=== PATIENT | female | born 1980 | race Caucasian/White ===

== ENCOUNTER 2016-11-05 14:47 | Emergency (ER) | payer OTHER | END 2016-11-05 14:59 | disposition left against medical advice (07) | LOC: CED 14:47 | DX: R21 Rash and other nonspecific skin eruption (principal) ==

== ENCOUNTER 2018-03-06 13:00 | Emergency (ER) | payer MEDICAID ==
[2018-03-06 13:18] VITALS: BP 136/87
--- NOTE | 2018-03-06 13:31 | EDPHY ---
H & P Stated Complaint: Hives - Unknown allergy Time Seen by Provider: 03/06/18 13:21 HPI/ROS: Chief Complaint: Hives HPI: 37-year-old woman states she complaints from chronic hives. She does take Benadryl. 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 She says that she has waves where she gets severe hives all over body. She was recently was on a course of prednisone ended 3 days ago. She states she feels that the hives are going to start getting worse. She has some mild hives on her legs and bili in abdomen at this time. She says that when she takes a Benadryl gets her very anxious and she has aching pain. The only thing that treats this pain is hydrocodone and she has to take clonazepam as well for the symptoms from the Benadryl. She states she tried to get into her primary care physician what was told to go to Urgent Care for medicine. She denies any fevers or chills. Does not know any exposures. States that she is in to see her fireboat operator"all the time"but has not given me the exact date when she was last seen. No chest pain or shortness of breath. No cough or wheeze. She is now specifically requesting hydrocodone and benzodiazepines. ROS: 10 point Review of Systems is negative except as noted in the HPI. PMH: Allergies Social History: Positive smoking, no alcohol, no recreational drug use Family History: non-contributory Physical Exam: Gen: Awake, Alert, No Distress HEENT: Nose: no rhinorrhea Eyes: PERRLA, EOMI Mouth: Moist mucosa Ext: no edema, non-tender Skin: Patient has very mild hives on her inner thighs with some mild abrasions with look like scratching. She has mild dermatographia. Neuro: CN II-XII intact, Sensation grossly intact, Strength 5/5 in bilateral upper and lower extremities - Personal History LMP (Females 10-55): 1-7 Days Ago Current Tetanus/Diphtheria Vaccine: Yes Current Tetanus Diphtheria and Acellular Pertussis (TDAP): Yes - Medical/Surgical History Hx Asthma: No Hx Chronic Respiratory Disease: No Hx Diabetes: No Hx Cardiac Disease: No Hx Renal Disease: No Hx Cirrhosis: No Hx Alcoholism: No Hx HIV/AIDS: No Hx Splenectomy or Spleen Trauma: No Other PMH: CHRONIC BACK PAIN OFF NARCS X 1YR(2012), ADVIL ONLY. BACK SURG X 3 , APPY, TONSILS, C-SEC - Social History Smoking Status: Heavy smoker Constitutional: Initial Vital Signs Temperature (C) 37.1 C 03/06/18 13:13 Heart Rate 116 H 03/06/18 13:13 Respiratory Rate 16 03/06/18 13:13 Blood Pressure 136/87 H 03/06/18 13:13 O2 Sat (%) 96 03/06/18 13:13 O2 Delivery Mode Room Air Allergies/Adverse Reactions: No Known Allergies Allergy (Verified 09/22/13 15:59) Home Medications: Medication Instructions Recorded Lexapro 10 MG 03/06/18 busPIRone 03/06/18 Medical Decision Making ED Course/Re-evaluation: 37-year-old woman presenting complaining of hives insisting that she needs hydrocodone and benzodiazepines. I have explained to her that these are not medications a usually used to treat this condition and I am not comfortable prescribing evening at this time. She has some very mild hives and is thighs but I not see evidence of acute allergic reaction. I have offered her Benadryl and some prednisone which she is refusing. When I told the patient I do not want to give her any narcotics or benzodiazepines she immediately got a pop bed and started getting dressed and states she was going to leave. She states she does not wish to wait for any paperwork and she was not going to stay if she was not going to get these medicines. Departure - Departure Disposition: Home, Routine, Self-Care Clinical Impression: Hives, Drug-seeking behavior Condition: Good Instructions: Allergies (ED) Additional Instructions: Follow up with her fireboat operator and her primary care physician in next 2-3 days. Referrals: Deepa Sloan MD [Primary Care Provider] - As per Instructions
== END 2018-03-06 13:40 | disposition home or self-care (01) ==
LOC: CED 13:00
DX: L50.9 Urticaria, unspecified (principal); F17.200 Nicotine dependence, unspecified, uncomplicated; Z72.89 Other problems related to lifestyle

== ENCOUNTER 2018-03-11 12:14 | Emergency (ER) | payer MEDICAID ==
[2018-03-11 12:19] VITALS: BP 113/73
--- NOTE | 2018-03-11 14:03 | EDPHY ---
General - History Smoking Status: Heavy smoker Time Seen by Provider: 03/11/18 13:10 Narrative: CHIEF COMPLAINT: Left wrist pain and difficulty moving HISTORY OF PRESENT ILLNESS: Patient presents with complaints of hives for several months, for which she has been treated with multiple rounds of steroid antihistamines. She says she has had minimal change in this but her primary complaint today is that she has been unable to straighten her left wrist. It has been very painful recently but now she cannot straighten it. Awoke to this this morning. She has no known trauma or injury. She has no numbness or tingling or pain elsewhere on her arm. She does have some tingling in the back of the left hand. She does have some mild right-sided neck pain that has been chronic for her. No incontinence of bowel or bladder. No retention of bowel or bladder. No other associated complaints or modifying factors. Right-hand dominant REVIEW OF SYSTEMS: Ten systems reviewed and are negative unless otherwise noted in the HPI PCP: Dr. Deepa Sloan SPECIALISTS: Director Of [employer] PAST MEDICAL HISTORY: Chronic pain, chronic hives PAST SURGICAL HISTORY: appendectomy, tonsillectomy, SOCIAL HISTORY: Lives here independently. FAMILY HISTORY: Noncontributory EXAMINATION General Appearance: Alert, no distress ENT: Airway is widely patent without any edema or erythema. Neck: Normal inspection, supple, no midline tenderness or crepitus. There is soft tissue tenderness of the right trapezius. Respiratory: Lungs are clear to auscultation Cardiovascular: Regular rate. Symmetric radial pulses 2+. Brisk cap refill the fingers left hand. Neurological: A&O, nonfocal, there is wrist drop on the left upper extremity. Interossei strength is decreased in the left upper extremity. Triceps strength is symmetric at 5/5. Account Services Analyst strength on the left hand is 5/5 and symmetric. Skin: Warm and dry. Scattered hives without any cellulitis. no petechiae or purpura no cellulitis. No palpable abscess. Extremities: Tenderness of the left hand and wrist. Unable to extend the left wrist. Weak interossei movement. Range of motion of the left elbow is symmetric to the right. Range of motion of the shoulder symmetric. Psychiatric: Mood and affect normal DIFFERENTIAL DIAGNOSES: Including but not limited to radial nerve palsy, wrist drop, cervical radiculopathy MDM: 1:10 p.m. Ongoing hives for several months with a new left wrist drop that does appear to be radial nerve palsy. She is well within normal limits with her vital signs. She does have significant pain in the area despite her Hudson and Klonopin she has been taking for primary care physician. She is neuro intact in the ulnar and median distributions. 1:45 p.m. Case discussed with Dr. Hightower. He feels the patient does not need imaging at this time given the lack of any triceps weakness. He recommends splinting and extension and follow up in the office in 2-3 weeks if no improvement. I discussed this with the patient. I reviewed her prescription history, she does have multiple recent narcotics, thus I feel that it would be better to treat her with Neurontin. She is comfortable this plan. We discussed ED precautions for any worsening pain, sensory changes or any weakness of the left elbow. She is comfortable this plan and discharged home stable condition. SUPERVISION: Patient was independently examined, but I discussed the case with my secondary supervising physician Dr. Whelan ([facility]) Medical Decision Making: I did not see this patient while she was in the emergency department. However her care was discussed with the PA while the patient was in the department. I agree with treatment plan and management (Lino Whelan) - Objective Vital Signs: Initial Vital Signs Temperature (C) 36.6 C 03/11/18 12:17 Heart Rate 86 03/11/18 12:17 Respiratory Rate 18 03/11/18 12:17 Blood Pressure 113/73 03/11/18 12:17 O2 Sat (%) 93 03/11/18 12:17 O2 Delivery Mode Room Air Allergies/Adverse Reactions: No Known Allergies Allergy (Verified 03/11/18 12:20) Home Medications: Medication Instructions Recorded Lexapro 10 MG 03/06/18 busPIRone 03/06/18 Gabapentin [Neurontin 300 MG (*)] 300 mg PO BID #20 cap 03/11/18 Hydrocodone-Acetamin 5-300 mg 03/11/18 Departure - Departure Disposition: Home, Routine, Self-Care Clinical Impression: Wrist drop, left wrist Radial nerve palsy Qualifiers: Laterality: left Qualified Code(s): G56.32 - Lesion of radial nerve, left upper limb Condition: Good Instructions: Radial Nerve Palsy (ED) Additional Instructions: 1. Left wrist splint until seen by Neurology for further care 2. Contact neurologist tomorrow morning for outpatient follow-up in 2 weeks 3. Medication as prescribed as needed 4. ED precautions for worsening pain, numbness or tingling or any new weakness pain in the left elbow Referrals: Deepa Sloan MD [Primary Care Provider] - As per Instructions Terrence Hightower DO [Doctor of Osteopathy] - As per Instructions Prescriptions: Gabapentin [Neurontin 300 MG (*)] 300 mg PO BID #20 cap
== END 2018-03-11 14:37 | disposition home or self-care (01) ==
PROC: 2W3DX1Z Immobilization of Left Lower Arm using Splint (ICD-10-PCS; principal; 2018-03-11)
DX: M21.332 Wrist drop, left wrist (principal); G56.32 Lesion of radial nerve, left upper limb; F17.200 Nicotine dependence, unspecified, uncomplicated